=== PATIENT | male | born 1985 | race Caucasian/White ===

== ENCOUNTER 2019-12-23 18:08 | Emergency (ER) | payer SELFPAY ==
[2019-12-23] MEDS ORDERED: Lidocaine 1% (PF) 30 ML VIAL ONE (18:29)
[2019-12-23] MEDS ORDERED: Bacitracin 1 PK ONE (18:51)
== END 2019-12-23 19:00 | disposition home or self-care (01) ==
LOC: NAV ERS 18:08
DX: L60.0 Ingrowing nail (principal); G43.909 Migraine, unspecified, not intractable, without status migrainosus; F41.9 Anxiety disorder, unspecified
CPT/HCPCS: 11750; J2001